=== PATIENT | female | born 1960 | race Caucasian/White ===

== ENCOUNTER 2016-10-06 22:30 | Emergency (ER) | payer OTHER ==
[~2016-10-06] VITALS: Ht 165.1 cm; Wt 58.2 kg
[2016-10-06 22:38] VITALS: BP 174/100; PULSE 86; RESP 16; O2SAT 100
--- NOTE | 2016-10-06 23:03 | ED.REPORT ---
HPI-Dental/Mouth Prob Date of Service Oct 06, 2016 ED Provider: Shereen Butler MD Pt is a healthy 56 y/o female presenting to the ED c/o tooth #3 pain onset 4 days ago. She c/o associated mild facial swelling on the right. Pt denies dysphagia, fever, chills, SOB. The patient saw a dentist at a [place] [facility] yesterday and was told that she needed a root canal after x-rays and was given [place] and magic mouthwash. She was also given Oral Gel and states that she may have developed an allergic reaction to it. She is asking for an antibiotics today and does not want more pain medications. Nursing Notes Stated Complaint: DENTAL PAIN Chief Complaint: Dental Nursing Notes Reviewed: Yes Allergies: Uncoded Allergies: PENICILLIN (Allergy, Unknown, 10/06/16) Scheduled Clindamycin (Clindamycin) 150 Mg Capsule 150 MG PO TID General Time Seen by MD: 23:02 Chief Complaint Tooth pain Hx Obtained From: Patient Arrived By: Walk-in Onset Occurred: 4 days ago Symptom Duration: Since onset Location: : Tooth upper R molar Quality: Painful Severity: Current: Moderate Severity: Maximum: Moderate Recent Healthcare: Recent doctor visit Past Medical History Past Medical History Denies Past Surgical History None reported Smoking History Unknown if Ever Smoker Social History Alcohol Use: "Social" Drug Use: Denies drug use Ambulatory Status Independent Review of Systems Review of Systems Note: +mild facial swelling Constitutional: Denies: Chills, Fever Ears / Nose / Throat: Reports: Toothache Respiratory: Denies: Shortness of breath GI: Denies: Dysphagia Complete sys rev & neg: except as marked. Physical Exam Initial Vital Signs Vital Signs (First) Date Time Temp Pulse Resp B/P Pulse Ox O2 Delivery O2 Flow Rate FiO2 10/06/16 22:38 36.7 86 16 174/100 100 Room Air Initial VS: Reviewed, Vital signs abnormal Head / Eyes: Atraumatic, Normocephalic Respiratory: No respiratory distress Cardiovascular: Intact distal pulses Abdomen / GI: Soft Extremities: Vascular intact, No swelling Skin: Warm, Dry, No cyanosis Neurologic: Alert, Oriented, Nonfocal Psychiatric: Mood/affect normal, Behavior normal, Normal thought content ENT: Airway patent, Mucous membranes moist, Pharynx NL, No pooling of secretions, No trismus Fullness over buccal surface aroudn tooth #3. White plaquing over entire gingival and buccal surface of right mouth. Fullness of the right side of face. Neck: Atraumatic, Supple, No meningismus, Full range of motion, No adenopathy General/Constitutional: Awake, Alert, No acute distress, Well appearing, Cooperative, Not toxic appearing Appearance / Presentation: Positive: In pain, Uncomfortable Re-Eval/Medical Decision Re-Evaluation/Progress : Time of Eval: 23:26 Re-Evaluation/Progress Note: F/U instructions and RTER warnings given. All questions addressed. Counseled Regarding: Diagnosis, Need for follow-up, When/why to return to ED Discharge & Departure Primary Impression: Dental infection Additional Impression: Allergic reaction Encounter type: initial encounter Qualified Code: T78.40XA - Allergy, unspecified, initial encounter Disposition: Home Discharge Condition All VS Reviewed: Yes Condition: Stable I agree with your dentist on the allergic reaction of the mucoa around the sore tooth. The liquid ("magic mouthwash") is a great idea to help with that. I do think you are developing an abscess (your dentist has said it was tooth #3 after xrays yesterday) and am going to start you on clindamycin 150mg 3/day. I am glad you will be able to get in to see a dentist tomorrow. Try mixing 2 ibuprofen (400mg)with one of the hydrocodone pain pills you got from the dentist. I hope your travels from here are safe. Scribe Attestation Portions of this note were transcribed by Ernst Campbell. I, Dr. Butler personally performed the history, physical exam and medical decision-making; I reviewed and confirmed the accuracy of the information in the transcribed note. Shereen Butler MD Oct 06, 2016 23:03 ERNST CAMPBELL Oct 06, 2016 23:27
[2016-10-06] MEDS ORDERED: CLIN-77 PO (23:33)
[2016-10-07 00:02] VITALS: BP 128/74; PULSE 84; RESP 16; O2SAT 96
== END 2016-10-07 | disposition home or self-care (01) ==
LOC: SED 22:30
DX: K04.7 Periapical abscess without sinus (principal); T49.6X5A Adverse effect of otorhinolaryngological drugs and preparations, initial encounter; Y93.89 Activity, other specified; Y92.89 Other specified places as the place of occurrence of the external cause; Y99.8 Other external cause status